=== PATIENT | female | born 2000 | race Caucasian/White ===

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

== ENCOUNTER 2020-09-19 11:25 | Emergency (ER) | payer BC ==
--- NOTE | 2020-09-19 12:29 | EDM.PDOC ---
ED HPI GENERAL MEDICAL PROBLEM - General Chief Complaint: Abdominal Pain Stated Complaint: RECTAL BLEEDING/SOB /ABDOMINAL PAIN Time Seen by Provider: 09/19/20 12:15 Source of Information: Reports: Patient, RN Notes Reviewed History Limitations: Reports: No Limitations - History of Present Illness INITIAL COMMENTS - FREE TEXT/NARRATIVE: Patient is a 19-year-old female who presents to the ER for her generalized abdominal pain, and constipation. Patient notes she was evaluated in the clinic a while ago, and given some [place] tablets for herpes outbreak. States that she had been taking a few of those, and then started getting somewhat constipated, she called the clinic they told her to stop taking the [place] pain medication. Patient states that last night she had some issues with bright red bleeding on the toilet paper per her rectum after trying to have a bowel movement. States that her last good bowel movement was about three or 4 days ago. She is having some watery diarrhea last night, but nothing since then. Patient points to her lower abdomen, near her umbilicus as a source of pain for today's visit. She has not had any fevers or chills, cough or shortness of breath, nausea/vomiting/diarrhea. Patient notes she has had an issue with constipation in the past, but it has not ever been this intense. Patient did try to stool softeners yesterday, and again a few days prior to this but has not been taking these steadily. She did state that she stopped taking the pain medications as directed by the clinic. Lower Abdomen Pain Score (Numeric/FACES): 7 - Related Data Allergies Allergy/AdvReac Type Severity Reaction Status Date / Time Sulfa (Sulfonamide Allergy Severe Rash Verified 09/19/20 11:48 Antibiotics) Home Meds: Home Meds Escitalopram [Lexapro] 10 mg PO DAILY 10/03/18 [History] lamoTRIgine [Lamictal] 100 mg PO DAILY 10/03/18 [History] buPROPion HCL [Wellbutrin SR] 150 mg PO DAILY 09/19/20 [History] desog-e.estradioL/e.estradioL [[place] 28 Day Tablet] 1 tab PO DAILY 09/19/20 [History] valACYclovir HCl [Valtrex] 500 mg PO ASDIRECTED 09/19/20 [History] Past Medical History Gastrointestinal History: Reports: Other (See Below) Other Gastrointestinal History: constipation Psychiatric History: Reports: Anxiety, Depression - Infectious Disease History Infectious Disease History: Reports: Herpes Other Infectious Disease History: vaginal Social & Family History - Tobacco Use Tobacco Use Status *Q: Current Every Day Tobacco User Years of Tobacco use: 3 Packs/Tins Daily: 1 - Caffeine Use Caffeine Use: Reports: None - Recreational Drug Use Recreational Drug Use: No ED ROS GENERAL - Review of Systems Review Of Systems: Comprehensive ROS is negative, except as noted in HPI. ED EXAM, GI/ABD - Physical Exam Exam: See Below Exam Limited By: No Limitations General Appearance: Alert, WD/WN, No Apparent Distress, Anxious (slight generalized) Respiratory/Chest: No Respiratory Distress, Lungs Clear, Normal Breath Sounds, No Accessory Muscle Use, Chest Non-Tender Cardiovascular: Normal Peripheral Pulses, Regular Rate, Rhythm, No Edema GI/Abdominal Exam: Normal Bowel Sounds, Soft, No Distention, No Mass, Tender (slight generalized, worse around umbilicus) (Female) Exam: Deferred Rectal (Female) Exam: Deferred Extremities: Normal Inspection, Normal Capillary Refill Neurological: Alert, Oriented, Normal Cognition, No Motor/Sensory Deficits Psychiatric: Normal Affect, Normal Mood Skin Exam: Warm, Dry, Intact, Normal Color, No Rash Course - Vital Signs Last Recorded V/S: Last Vital Signs Temp 98.0 F 09/19/20 11:55 Pulse 70 09/19/20 11:55 Resp 20 09/19/20 11:55 BP 111/66 09/19/20 11:55 Pulse Ox 99 09/19/20 11:55 - Orders/Labs/Meds Orders: Active Orders 24 hr Category Date Time Status Enema [RC] ASDIRECTED Care 09/19/20 12:46 Active Labs: Laboratory Tests 09/19/20 09/19/20 09/19/20 Range/Units 15:24 15:24 15:45 WBC 7.57 (3.98-10.04) K/mm3 RBC 4.44 (3.98-5.22) M/mm3 Hgb 13.2 (11.2-15.7) gm/dl Hct 38.9 (34.1-44.9) % MCV 87.6 (79.4-94.8) fl MCH 29.7 (25.6-32.2) pg MCHC 33.9 (32.2-35.5) g/dl RDW Std Deviation 37.7 (36.4-46.3) fL Plt Count 285 (182-369) K/mm3 MPV 10.2 (9.4-12.3) fl Neut % (Auto) 54.1 (34.0-71.1) % Lymph % (Auto) 35.3 (19.3-51.7) % [place] % (Auto) 9.0 (4.7-12.5) % Eos % (Auto) 1.2 (0.7-5.8) Baso % (Auto) 0.3 (0.1-1.2) % Neut # (Auto) 4.10 (1.56-6.13) K/mm3 Lymph # (Auto) 2.67 (1.18-3.74) K/mm3 [place] # (Auto) 0.68 H (0.24-0.36) K/mm3 Eos # (Auto) 0.09 (0.04-0.36) K/mm3 Baso # (Auto) 0.02 (0.01-0.08) K/mm3 Sodium 142 (136-145) mEq/L Potassium 3.6 (3.5-5.1) mEq/L Chloride 104 (98-107) mEq/L Carbon Dioxide 25 (21-32) mEq/L Anion Gap 16.6 H (5-15) BUN 11 (7-18) mg/dL Creatinine 0.7 (0.55-1.02) mg/dL Est Cr Clr Drug Dosing 92.16 mL/min Estimated GFR (MDRD) > 60 (>60) mL/min BUN/Creatinine Ratio 15.7 (14-18) Glucose 81 (70-99) mg/dL Calcium 8.7 (8.5-10.1) mg/dL Total Bilirubin 0.6 (0.2-1.0) mg/dL AST 12 L (15-37) U/L ALT 31 (14-59) U/L Alkaline Phosphatase 55 (46-116) U/L Total Protein 7.3 (6.4-8.2) g/dl Albumin 3.8 (3.4-5.0) g/dl Globulin 3.5 gm/dL Albumin/Globulin Ratio 1.1 (1-2) Urine Color Yellow (Yellow) Urine Appearance Clear (Clear) Urine pH 6.0 (5.0-8.0) Ur Specific [place] > or = 1.030 (1.005-1.030) Urine Protein Negative (Negative) Urine Glucose (UA) Negative (Negative) Urine Ketones Negative (Negative) Urine Occult Blood 3+ H (Negative) Urine Nitrite Negative (Negative) Urine Bilirubin Negative (Negative) Urine Urobilinogen 0.2 (0.2-1.0) Ur Leukocyte Esterase Negative (Negative) Urine RBC 10-20 H (0-5) /hpf Urine WBC 0-5 (0-5) /hpf Ur Epithelial Cells 0-5 (0-5) /hpf Calcium Oxalate Crystal Moderate H (NONE) Urine Bacteria Moderate H (FEW) /hpf Urine Mucus Many H (FEW) /hpf Meds: Medications Discontinued Medications Generic Name Dose Route Start Last Admin Trade Name Bonq PRN Reason Stop Dose Admin Acetaminophen 975 mg 09/19/20 15:09 09/19/20 16:39 Acetaminophen 325 Mg Tab PO 09/19/20 15:10 975 mg NOW ONE Administration Lidocaine HCl 10 ml 09/19/20 12:45 09/19/20 13:35 Lidocaine 2% Jelly 10 Ml Urojet MUCMEM 09/19/20 12:46 10 ml ONETIME ONE Administration - Re-Assessments/Exams Free Text/Narrative Re-Assessment/Exam: 09/19/20 12:27 Patient presents to the ED for her abdomen pain and constipation. We will get 2 view abdomen x-rays for initial evaluation. 09/19/20 13:35 Patient has a slight a bit of gas throughout the small bowel, it does not appear to be obstructive at this point but radiology would like this correlation if there is any symptoms of gastroenteritis. I did appreciate a stool ball within her rectum, we will go ahead and do a Urojet instilled to the rectum to help numb up the area, and try soapsuds enema to see if this helps relieve her discomfort. Patient verbalized understanding. 09/19/20 15:09 Patient was not able to have much for results for bowel movement at this time, we will go ahead with the enema and see if this resolves some of her constipation. Notes that she went to the bathroom, she was still having some blood in her diarrhea type stools. We will go ahead and get a CBC to make sure she is not lost too much blood at this time and she is complaining of a headache so we will give her some oral Tylenol for pain management. 09/19/20 15:59 CBC demonstrates no focal abnormalities, hemoglobin is within normal limits, she is not anemic for today's purposes. 09/19/20 17:56 Patient was reassessed at bedside, and she has had a little bit of results with the enema, but is still awaiting a portion of it for further results. 09/19/20 18:58 Patient was able to have some more results, nursing staff states that she is ready to go home at this time. We will discharge her home with conservative recommendations and have her follow-up with Dr. Briggs if the rectal bleeding does not seem to rectify itself. Departure - Departure Time of Disposition: 18:58 Disposition: Home, Self-Care 01 Condition: Good Clinical Impression: Rectal bleeding Constipation Qualifiers: Constipation type: drug induced constipation Qualified Code(s): K59.03 - Drug induced constipation - Discharge Information *PRESCRIPTION DRUG MONITORING PROGRAM REVIEWED*: No *COPY OF PRESCRIPTION DRUG MONITORING REPORT IN PATIENT FIDELINA: No Instructions: Constipation, Adult, [id number], Rectal Bleeding, [id number] Referrals: Marie Reveles, HERPETOLOGIST [Primary Care Provider] - Forms: ED Department Discharge, ED Return to Work/School Form Additional Instructions: You have been evaluated in the ED for constipation. You had labs done at this visit along with abdomen x-rays, these did demonstrate that you are constipated. You were given an enema in the ER, this seemed to help reduce some good results and you felt better upon discharge. Regarding your rectal bleeding, this should be self-limiting, and is likely because you are straining due to the constipation. If this does not seem to be getting better, in the next day or 2, you should call the [facility] at [phone] and request an appoint with Dr. Carol Ann Briggs for referral and ongoing management. She has been made notified of your visit in this ER visit and should be expecting your call if you should need management. Regarding your abdominal discomfort, you may try some Tylenol or ibuprofen every 6 hours as needed for ongoing pain management. Please return to the ED if your symptoms should change or worsen. Sepsis Event Note (ED) - Focused Exam Vital Signs: Vital Signs Temp Pulse Resp BP Pulse Ox 09/19/20 11:55 98.0 F 70 20 111/66 99 - My Orders Last 24 Hours: My Active Orders 09/19/20 12:46 Enema [RC] ASDIRECTED - Assessment/Plan Last 24 Hours: My Active Orders 09/19/20 12:46 Enema [RC] ASDIRECTED
[2020-09-19] MEDS ORDERED: Lidocaine 2% Jelly 10 ML Urojet MUCMEM ONE (12:45)
--- NOTE | 2020-09-19 13:11 | CR ---
Abdomen: Supine and upright views the abdomen were obtained. Comparison: No prior abdominal imaging is available. Several slightly prominent gas-filled loops of small bowel are seen. Gas is noted within the colon. No free air is seen. No abnormal calcifications are noted. Bony structures are unremarkable. Impression: 1. Slight gas within the small bowel. This does not appear to be obstructive at this point but please correlate if patient has any symptoms of gastroenteritis. 2. Other portions of the 2 view abdominal x-ray are unremarkable. Diagnostic code #3
[2020-09-19] MEDS ORDERED: Acetaminophen 325 MG Tab PO ONE (15:09)
== END 2020-09-19 19:30 | disposition home or self-care (01) ==
LOC: JD.ED 11:25
DX: K59.03 Drug induced constipation (principal); T40.2X5A Adverse effect of other opioids, initial encounter; K62.5 Hemorrhage of anus and rectum; Z72.0 Tobacco use; Z88.2 Allergy status to sulfonamides
CPT/HCPCS: 36415; 74019; 80053; 81001; 85025; 99283; A9270